=== PATIENT | female | born 2000 | race Caucasian/White ===

== ENCOUNTER 2021-12-10 12:42 | Inpatient (IN) | payer MEDICAID ==
[~2021-12-10] VITALS: Ht 157.5 cm; Wt 56.0 kg
[2021-12-10] MEDS ORDERED: VITA-369 (13:04)
[2021-12-10] MEDS ORDERED: CALC-3 (13:04)
[2021-12-10] MEDS ORDERED: TEGXR2 PO (13:04)
[2021-12-10] MEDS ORDERED: SODIUM CHLORIDE 0.9% 1,000 ML IV ONE (13:15)
[2021-12-10] MEDS ORDERED: MECLIZINE 25MG TABLET PO ONE (14:00)
[2021-12-10 14:55] LABS: BASOPHILS % 0.8 % (0.0-2.0); HEMATOCRIT. 43.1 % (36.0-48.0); HEMOGLOBIN. 14.1 g/dL (12.0-16.0); LYMPHOCYTES % 25.2 % (20.0-50.0); MEAN CORPUSCULAR HEMOGLOBIN 27.9 pg (28.0-32.0); MEAN CORPUSCULAR VOLUME 85.3 fL (81.0-99.0); MEAN PLATELET VOLUME 8.3 fl (7.4-10.4); MONOCYTES % 12.5 % (2.0-8.0); NEUTROPHILS % 58.5 % (40.0-76.0); PLATELET 162 x1000/uL (130-400); RED BLOOD CELL COUNT 5.05 mill/uL (4.2-5.4); RED CELL DISTRIBUTION WIDTH 13.3 % (11.6-14.6)
[2021-12-10 15:02] LABS: CHLORIDE 102 mEq/L (98-107)
[2021-12-10 15:12] LABS: ETHANOL BLOOD < 10 mg/dL
[2021-12-10 15:33] LABS: HCG SCREEN NEGATIVE
[2021-12-11] VITALS: BP 129/78
== END 2021-12-11 00:06 | disposition left against medical advice (07) | DRG 426 ==
LOC: ER 14:24 → 6WST 16:00 → EDBEDREQTM 16:07 → EDBEDREQ 16:07 → ENRESERV 23:29
PROVIDERS: ADMIT Hospitalist; ATTEND Hospitalist
DX: E87.1 Hypo-osmolality and hyponatremia (principal); G20 Parkinson's disease; R56.9 Unspecified convulsions; R53.1 Weakness; Z79.899 Other long term (current) drug therapy; Z53.29 Procedure and treatment not carried out because of patient's decision for other reasons
CPT/HCPCS: 36415; 71045; 80053; 80320; 82962; 83880; 84484; 84703; 85025; 93005; 99285; J7030; J8597; G0480

== ENCOUNTER 2023-07-30 15:07 | Emergency (ER) | payer MEDICAID ==
[~2023-07-30] VITALS: Ht 162.6 cm; Wt 60.0 kg
[~2023-07-30 15:07] MED LIST: CALC-3; TEGXR2 PO; VITA-369
[2023-07-30 15:09] VITALS: O2SAT 100
[2023-07-30 16:14] LABS: BASOPHILS % 0.4 % (0.0-2.0); EOSINOPHILS % 0.7 % (0.0-5.0); HEMOGLOBIN. 12.6 g/dL (12.0-16.0); LYMPHOCYTES % 13.6 % (20.0-50.0); MEAN CORPUSCULAR HEMOGLOBIN 29.6 pg (28.0-32.0); MEAN CORPUSCULAR HGB CONC 34.1 g/dL (31.0-37.0); MEAN CORPUSCULAR VOLUME 86.9 fL (81.0-99.0); MEAN PLATELET VOLUME 7.6 fl (7.4-10.4); MONOCYTES % 4.8 % (2.0-8.0); NEUTROPHILS % 80.5 % (40.0-76.0); PLATELET 271 x1000/uL (130-400); RED BLOOD CELL COUNT 4.25 mill/uL (4.2-5.4); RED CELL DISTRIBUTION WIDTH 13.4 % (11.6-14.6)
[2023-07-30 16:42] LABS: ALANINE AMINOTRANSFERASE 17 IU/L (10-49); ALBUMIN 4.9 g/dL (3.2-4.8); ASPARTATE AMINOTRANSFERASE 21 IU/L (<34); B-HCG QUANTITATIVE 24291 mIU/mL (<3); BILIRUBIN TOTAL 0.3 mg/dL (0.1-1.0); CALCIUM 9.2 mg/dL (8.7-10.4); CARBON DIOXIDE 23 mEq/L (21-32); CHLORIDE 106 mEq/L (98-107); CREATININE 0.5 mg/dL (0.6-1.0); GLUCOSE 104 mg/dL (70-105); POTASSIUM 4.4 mEq/L (3.5-5.1); PROTEIN TOTAL 8.5 g/dL (6.0-8.3); SODIUM 135 mEq/L (136-145); UREA NITROGEN BLOOD 6 mg/dL (9-23)
[2023-07-30 16:58] LABS: CLARITY URINE CLOUDY (CLEAR); COLOR URINE YELLOW (YELLOW); GLUCOSE URINE NEGATIVE (NEGATIVE); KETONES URINE 1+ (NEGATIVE); LEUKOCYTE ESTERASE URINE NEGATIVE (NEGATIVE); NITRITE URINE NEGATIVE (NEGATIVE); OCCULT BLOOD URINE NEGATIVE (NEGATIVE); PH URINE 5.5 (4.5-8.0); PROTEIN URINE TRACE (NEGATIVE); SPECIFIC GRAVITY URINE 1.022 (1.005-1.030)
[2023-07-30] MEDS ORDERED: MECLIZINE 25MG TABLET PO ONE (17:15)
[2023-07-30 17:34] LABS: BACTERIA URINE 2+; RBC URINE 0-2 /hpf (0-2); SQUAMOUS EPITHELIAL CELL URINE 2+ /lpf (RARE/1+); WBC URINE 0-2 /hpf (0-2)
[2023-07-30] MEDS ORDERED: MECL-299 MT (17:45)
[2023-07-30] MEDS: MECLIZINE 12.5MG TABLET PO NR (17:51)
[2023-07-30 18:57] VITALS: BP 140/85; PULSE 100; RESP 17; TEMP 98.2
== END 2023-07-30 19:35 | disposition home or self-care (01) ==
LOC: ER 15:07
DX: O26.892 Other specified pregnancy related conditions, second trimester (principal); R42 Dizziness and giddiness; I10 Essential (primary) hypertension; Z3A.16 16 weeks gestation of pregnancy
CPT/HCPCS: 99285; 76805; 80053; 81003; 81025; 84702; 85025; 86850; 86900; 86901; 36415; 93005; J8597

== ENCOUNTER 2023-07-30 20:35 | Emergency (ER) | payer MEDICAID ==
[~2023-07-30] VITALS: Ht 165.1 cm; Wt 62.0 kg
[~2023-07-30 20:35] MED LIST changes: +MECL-299 MT
[2023-07-30 20:39] VITALS: O2SAT 98
[2023-07-30] MEDS: LEVETIRACETAM 500MG TABLET PO ONE (21:31)
[2023-07-30 22:00] VITALS: BP 114/71; PULSE 89; RESP 16; TEMP 97.5
== END 2023-07-30 22:39 | disposition home or self-care (01) ==
LOC: ER 20:35
DX: O26.892 Other specified pregnancy related conditions, second trimester (principal); G40.509 Epileptic seizures related to external causes, not intractable, without status epilepticus; Z3A.16 16 weeks gestation of pregnancy
CPT/HCPCS: 71045; 99283